=== PATIENT | female | born 1990 | race Caucasian/White ===

== ENCOUNTER 2019-10-14 14:16 | Emergency (ER) | payer MEDICAID ==
[~2019-10-14] VITALS: Ht 165.1 cm; Wt 45.8 kg
[~2019-10-14 14:16] MED LIST: ALBU18HF INH; CEFD300C37 PO
--- NOTE | 2019-10-14 15:19 | NUR ---
ON ARRIVAL TO ROOM FROM LOBBY PT EXPERIENCING VAGINAL BLEEDING STATING HER PADS ARE SOAKED. PT PROVIDED NEW PADS AND TO THE BATHROOM. ON RETURN TO ROOM PROVIDER EXAMINING PT
[2019-10-14] MEDS ORDERED: HYDROmorphone 2 MG/ML, 1ML IVPush ONE (15:30)
[2019-10-14] MEDS ORDERED: ONDANSETRON 2MG/ML, 2ML IVPush ONE ×2 (15:30→17:30)
[2019-10-14] MEDS ORDERED: SODIUM CHLORIDE 0.9% 1,000ML IVBOLUS ONE (15:30)
[2019-10-14] MEDS ORDERED: SODIUM CHLORIDE FLUSH 10ML SYR IVF ONE (15:30)
[2019-10-14 15:35] LABS: MEAN CORPUSCULAR HEMOGLOBIN 25.6 pg (27.0-34.8); MEAN CORPUSCULAR HGB CONC 32.5 g/dL (32.4-35.8); MEAN CORPUSCULAR VOLUME 78.8 fL (80-100); MEAN PLATELET VOLUME 6.2 fL (7.4-10.4); PLATELET COUNT 338 x10^3/uL (130-400); RED BLOOD COUNT 4.28 x10^6/uL (3.82-5.3); RED CELL DISTRIBUTION WIDTH 15.9 % (9.6-15.2)
[2019-10-14] MEDS ORDERED: ONDANSETRON 2MG/ML, 2ML ONE ×2 (15:36→17:20)
[2019-10-14] MEDS ORDERED: HYDROmorphone 1 MG/ML, 1ML INJ ONE (15:36)
--- NOTE | 2019-10-14 15:47 | NUR ---
MEDICATED FOR PAIN AND IV FLUIDS INFUSING WHILE AWAITING ULTRASOUND
[2019-10-14 16:14] LABS: BASOPHILS # (AUTO) 0.01 x10^3/uL (0-0.1); BASOPHILS % (AUTO) 0 % (0-1); EOSINOPHILS # (AUTO) 0.01 x10^3/uL (0-0.4); EOSINOPHILS % (AUTO) 1 % (1-7); LYMPHOCYTES # (AUTO) 0.67 x10^3/uL (1-3.4); LYMPHOCYTES % (AUTO) 23 % (22-44); MD SCAN; MONOCYTES # (AUTO) 0.26 x10^3/uL (0.2-0.8); MONOCYTES % (AUTO) 9 % (2-9); NEUTROPHILS % (AUTO) 67 % (42-75)
--- NOTE | 2019-10-14 16:25 | NUR ---
off floor to ultrasound
--- NOTE | 2019-10-14 17:06 | NUR ---
MD AT BEDSIDE SPEAKING WITH PT ABOUT ULTRASOUND RESULTS
[2019-10-14] MEDS ORDERED: MORPHINE SULFATE 4 MG/ML, 1ML ONE (17:21)
[2019-10-14 17:30] VITALS: BP 99/64
[2019-10-14] MEDS ORDERED: MORPHINE SULFATE 4 MG/ML, 1ML IVPush ONE (17:30)
--- NOTE | 2019-10-14 17:32 | NUR ---
ADDITIONALLY MEDICATED FOR OLIVA AND ABDOMINAL PAIN NOTED ON MAR
== END 2019-10-14 17:50 | disposition home or self-care (01) ==
LOC: ED 17:40
DX: O03.9 Complete or unspecified spontaneous abortion without complication (principal); F17.200 Nicotine dependence, unspecified, uncomplicated; J45.909 Unspecified asthma, uncomplicated; M54.9 Dorsalgia, unspecified
CPT/HCPCS: 36415; 76801; 84702; 85025; 86901; 96361; 96374; 96375; 96376; 99284; J1170; J2270; J2405; J7030

== ENCOUNTER 2019-10-16 19:45 | Emergency (ER) | payer MEDICAID ==
[~2019-10-16] VITALS: Ht 167.6 cm; Wt 46.6 kg
[2019-10-16] MEDS ORDERED: ONDANSETRON ODT 4 MG PO ONE (20:30)
[2019-10-16] MEDS ORDERED: HYDROmorphone 1 MG/ML, 1ML INJ IM ONE (20:30)
[2019-10-16] MEDS ORDERED: ONDANSETRON ODT 4 MG ONE (20:30)
[2019-10-16] MEDS ORDERED: HYDROmorphone 1 MG/ML, 1ML INJ ONE (20:31)
[2019-10-16 20:32] LABS: BASOPHILS # (AUTO) 0.01 x10^3/uL (0-0.1); BASOPHILS % (AUTO) 0 % (0-1); EOSINOPHILS # (AUTO) 0.02 x10^3/uL (0-0.4); EOSINOPHILS % (AUTO) 1 % (1-7); LYMPHOCYTES # (AUTO) 0.82 x10^3/uL (1-3.4); LYMPHOCYTES % (AUTO) 25 % (22-44); MD NO; MEAN CORPUSCULAR HEMOGLOBIN 25.9 pg (27.0-34.8); MEAN CORPUSCULAR HGB CONC 33.3 g/dL (32.4-35.8); MEAN CORPUSCULAR VOLUME 77.9 fL (80-100); MEAN PLATELET VOLUME 6.8 fL (7.4-10.4); MONOCYTES # (AUTO) 0.32 x10^3/uL (0.2-0.8); MONOCYTES % (AUTO) 10 % (2-9); NEUTROPHILS # (AUTO) 2.15 x10^3/uL (1.8-6.8); NEUTROPHILS % (AUTO) 65 % (42-75); PLATELET COUNT 279 x10^3/uL (130-400); RED CELL DISTRIBUTION WIDTH 15.1 % (9.6-15.2)
--- NOTE | 2019-10-16 20:40 | NUR ---
medicated with pain meds and placed on continous pulse ox
[2019-10-16 20:41] LABS: ALBUMIN 3.9 g/dL (3.4-5.0); ANION GAP 7 mmol/L (5-15); CALCIUM 8.4 mg/dL (8.5-10.1); CHLORIDE 108 mmol/L (98-107); CREATININE 0.83 mg/dL (0.55-1.02)
[2019-10-16 20:59] VITALS: BP 105/64
--- NOTE | 2019-10-16 21:01 | NUR ---
STSTES RELIEF FROM PAIN WITH MED
== END 2019-10-16 21:29 | disposition home or self-care (01) ==
LOC: ED 20:39
DX: O03.9 Complete or unspecified spontaneous abortion without complication (principal); D50.0 Iron deficiency anemia secondary to blood loss (chronic)
CPT/HCPCS: 36415; 80048; 82040; 84702; 85025; 96372; 99283; J1170; Q0162